=== PATIENT | female | born 1970 | race African-American/Black ===

== ENCOUNTER 2023-07-21 10:28 | Emergency (ER) | payer BC ==
[2023-07-21] MEDS ORDERED: LIDOCAINE 1% MPF 5 ML VIAL ONE (10:37)
--- NOTE | 2023-07-21 11:37 | RAD REPORT ---
EXAM DESCRIPTION: RAD - Hand Right 3 View - 07/21/2023 11:27 am CLINICAL HISTORY: laceration middle finger;Pain COMPARISON: No comparisons FINDINGS/IMPRESSION: No acute fracture. No malalignment. No significant focal degenerative changes. Middle finger laceration. No radiopaque foreign body.
--- NOTE | 2023-07-21 11:55 | EDPHYS ---
Physician Documentation [facility] Name: Meaghan Elise Age: 53 yrs Sex: Female : 1970 Arrival Date: 07/21/2023 Time: 10:28 Bed 6 Private MD: ED Physician Guillermo Lopez HPI: 07/20 10:43 This 53 yrs old Female presents to ER via Ambulatory with complaints of Laceration To rn Hand - Finger. 10:43 The patient has a laceration occurred at home. The laceration(s) is(are) located on the rn palmar aspect of middle phalanx of right middle finger. Onset: The symptoms/episode began/occurred just prior to arrival. Associated signs and symptoms: Pertinent negatives: deformity, heavy bleeding, numbness distal to injury, suspected foreign body. The patient has not experienced similar symptoms in the past. Patient reports moving water heater and finger got stuck between kim and stair or step. Has a small laceration to the right middle finger. Reports full range of motion.. PATIENT FLOW COORDINATOR: 10:43 LMP N/A - Post-menopause, Not ph Historical: - Allergies: 10:40 Sulfa (Sulfonamide Antibiotics); ph - Home Meds: 10:40 None [Active]; ph - PMHx: 10:40 None; ph - PSHx: 10:40 None; ph - Immunization history:: Adult Immunizations up to date. - Infectious Disease History:: Denies. - Social history:: Smoking status: Patient denies any tobacco usage or history of. - Family history:: not pertinent. - Hospitalizations: : No recent hospitalization is reported. ROS: 10:43 Constitutional: Negative for fever, chills, and weight loss, MS/Extremity: Positive for rn laceration to right middle finger Neuro: Negative for numbness or tingling's or weakness of the affected finger Exam: 10:43 Constitutional: This is a well developed, well nourished patient who is awake, alert, rn and in no acute distress. MS/ Extremity: Pulses equal, no cyanosis. Neurovascular intact. Full, normal range of motion. Able to make complete fist. 1.5 semilunar superficial laceration noted to the right middle finger, palmar aspect of the middle phalanx. No active bleeding. Vital Signs: 10:38 BP 144 / 95; Pulse 95; Resp 18; Temp 97.5; Pulse Ox 100% on R/A; Weight 58.97 kg; ph Height 5 ft. 3 in. ; 10:38 Body Mass Index 23.03 (58.97 kg, 160.02 cm) ph Laceration: 11:50 Wound Repair of 1.5cm ( 0.6in ) subcutaneous laceration to palmar aspect of middle rn phalanx of right middle finger. Distal neuro/vascular/tendon intact. Anesthesia: Regional Block with 3 mls of 1% lidocaine. Wound prep: Moderate cleansing with betadine by me, Wound explored moderately. Skin closed with 5 4-0 Prolene using interrupted sutures and sterile technique. Dressed with 4x4's, finger splint. Patient tolerated well. MDM: 10:31 Patient medically screened. rn 11:50 Differential diagnosis: superficial laceration. Data reviewed: vital signs, nurses rn notes, radiologic studies, plain films, and as a result, I will discharge patient. Independent interpretation of the following test(s) in the Emergency Department X-Ray: My interpretation is X-ray right hand images negative for acute fracture per my interpretation. Counseling: I had a detailed discussion with the patient and/or guardian regarding the historical points, exam findings, and any diagnostic results supporting the discharge/admit diagnosis, radiology results, the need for outpatient follow up, to return to the emergency department if symptoms worsen or persist or if there are any questions or concerns that arise at home. Special discussion: I discussed with the patient/guardian in detail that at this point there is no indication for admission to the hospital. It is understood, however, that if the symptoms persist or worsen the patient needs to return immediately for re-evaluation. 07/20 10:38 Order name: XRAY Hand RIGHT 3 View; Complete Time: 11:47 rn 07/20 10:39 Order name: Wound Care; Complete Time: 10:43 rn 07/20 10:39 Order name: Suture Tray at Bedside; Complete Time: 10:43 rn Administered Medications: 11:40 Drug: Lidocaine Infiltration (1 %) 1 vials 5 ml Infiltration once; to bedside Volume: 5 ph ml; Route: Infiltration; 11:49 Follow up: Response: No adverse reaction ph Disposition Summary: 07/21/23 11:54 Discharge Ordered Notes: Location: Home rn Problem: new rn Symptoms: have improved rn Condition: Stable rn Diagnosis - Laceration without foreign body of right middle finger without damage to nail rn Followup: rn - With: Private Physician - When: As needed - Reason: Recheck today's complaints, Re-evaluation by your physician Followup: rn - With: Emergency Department - When: 14 days - Reason: Staple/Suture removal Discharge Instructions: - Discharge Summary Sheet rn - Laceration Care, Adult rn Forms: - Medication Reconciliation Form rn - Antibiotic double corner cutter - Prescription Opioid Use rn - Patient Portal Instructions rn - Leadership Thank You Letter rn Prescriptions: - Augmentin 875-125 mg Oral Tablet - take 1 tablet ORAL route every 12 hours for 10 days; 20 tablet; Refills: 0, rn Product Selection Permitted Signatures: Dispatcher [employer] Guillermo Sorensen MD MD rn MullerDiana RN RN
--- NOTE | 2023-07-21 11:55 | ER ---
Nurse's Notes [facility] Name: Meaghan Elise Age: 53 yrs Sex: Female : 1970 Arrival Date: 07/21/2023 Time: 10:28 Bed 6 Private MD: Diagnosis: Laceration without foreign body of right middle finger without damage to nail Presentation: 07/20 10:38 Chief complaint: Patient states: Was moving a water heater, crushed R middle digit w/ ph kim, laceration noted. Coronavirus screen: Vaccine status: Patient reports receiving the 2nd dose of the covid vaccine. Ebola Screen: No symptoms or risks identified at this time. Complicating Factors: There are no complicating factors for this patient. Initial Sepsis Screen: Does the patient meet any 2 criteria? No. Patient's initial sepsis screen is negative. Does the patient have a suspected source of infection? No. Patient's initial sepsis screen is negative. Risk Assessment: Do you want to hurt yourself or someone else? Patient reports no desire to harm self or others. Onset of symptoms was July 21, 2023. 10:38 Method Of Arrival: Ambulatory ph 10:38 Acuity: VANESA 4 ph Triage Assessment: 10:41 General: Appears in no apparent distress. comfortable, obese, Behavior is calm, ph cooperative, appropriate for age. Pain: Complains of pain in palmar aspect of middle phalanx of right middle finger. Neuro: Level of Consciousness is awake, alert, obeys commands, Oriented to person, place, time, situation. Respiratory: Airway is patent Respiratory effort is even, unlabored. Derm: Skin is pink, warm \T\ dry. Injury Description: Laceration sustained to palmar aspect of middle phalanx of right middle finger is 2.6 to 7.5 cm long, was sustained less than 30 minutes ago. is bleeding a small amount. EDUCATION DEAN: 10:43 LMP N/A - Post-menopause, Not ph Historical: - Allergies: 10:40 Sulfa (Sulfonamide Antibiotics); ph - Home Meds: 10:40 None [Active]; ph - PMHx: 10:40 None; ph - PSHx: 10:40 None; ph - Immunization history:: Adult Immunizations up to date. - Infectious Disease History:: Denies. - Social history:: Smoking status: Patient denies any tobacco usage or history of. - Family history:: not pertinent. - Hospitalizations: : No recent hospitalization is reported. Screenin:42 [facility] ED Fall Risk Assessment (Adult) History of falling in the last 3 months, ph including since admission No falls in past 3 months (0 pts) Confusion or Disorientation No (0 pts) Intoxicated or Sedated No (0 pts) Impaired Gait No (0 pts) Mobility Assist Device Used No (0 pt) Altered Elimination No (0 pt) Score/Fall Risk Level 0 - 2 = Low Risk Oriented to surroundings, Maintained a safe environment. Abuse screen: Denies threats or abuse. Denies injuries from another. Nutritional screening: No deficits noted. Tuberculosis screening: No symptoms or risk factors identified. Assessment: 10:41 General: Appears in no apparent distress. Behavior is calm, cooperative. ph Musculoskeletal: Circulation, motion, and sensation intact. Range of motion: intact in all extremities. Injury Description: Laceration sustained to palmar aspect of middle phalanx of right middle finger is 2.6 to 7.5 cm long, was sustained less than 30 minutes ago. is bleeding a small amount. Vital Signs: 10:38 BP 144 / 95; Pulse 95; Resp 18; Temp 97.5; Pulse Ox 100% on R/A; Weight 58.97 kg; ph Height 5 ft. 3 in. ; 10:38 Body Mass Index 23.03 (58.97 kg, 160.02 cm) ph ED Course: 10:30 Patient arrived in ED. ra3 10:31 Guillermo Lopez MD is Attending Physician. rn 10:38 Diana Muller RN is Primary Nurse. ph 10:40 Triage completed. ph 10:41 Arm band placed on Patient placed in an exam room, on a stretcher. ph 10:42 Patient has correct armband on for positive identification. Bed in low position. Call ph light in reach. Side rails up X 1. Door closed. Noise minimized. Warm blanket given. Ice pack to injury. 10:43 Provided Education on: Use of call light. ph 10:43 Patient did not have IV access during this emergency room visit. ph 11:29 XRAY Hand RIGHT 3 View In Process Unspecified. EDMS 11:40 Assist provider with laceration repair on palmar aspect of middle phalanx of right ph middle finger that was between 2.6 to 7.5 cm using sutures. Set up tray. Performed by Guillermo Lopez MD Dressed with [facility], Patient tolerated well. Administered Medications: 11:40 Drug: Lidocaine Infiltration (1 %) 1 vials 5 ml Infiltration once; to bedside Volume: 5 ph ml; Route: Infiltration; 11:49 Follow up: Response: No adverse reaction ph Medication: 10:42 VIS not applicable for this client. ph Outcome: 11:54 Discharge ordered by . rn 12:02 Discharged to home ambulatory, with significant other, 12:02 Condition: good 12:02 Discharge instructions given to patient, Instructed on discharge instructions, follow up and referral plans. medication usage, Demonstrated understanding of instructions, follow-up care, medications, Prescriptions given X 1, 12:02 Patient left the ED. ph Signatures: Dispatcher [employer] EDMS Guillermo Lopez MD MD rn Hall, Patricia, RN RN ph Alva, Maria Luz 3
[2023-07-21 15:16] VITALS: BP 144/95; TEMP 97.5; O2SAT 100
== END 2023-07-21 12:02 | disposition home or self-care (01) ==
LOC: ER 10:28
PROC: 0HQFXZZ Repair Right Hand Skin, External Approach (ICD-10-PCS; principal; 2023-07-21)
DX: S61.212A Laceration without foreign body of right middle finger without damage to nail, initial encounter (principal); Z88.2 Allergy status to sulfonamides
CPT/HCPCS: 73130; 99283; 12001; J2001